=== PATIENT | male | born 1960 | race Asian ===

== ENCOUNTER 2018-11-10 15:01 | Inpatient (IN) | payer OTHER ==
[~2018-11-10] VITALS: Ht 172.7 cm; Wt 49.9 kg
--- NOTE | 2018-11-10 01:22 | NUR ---
2230 SPUTUM SAMPLE COLLECTED AND SENT TO LAB
[2018-11-10 15:10] VITALS: BP 133/115
--- NOTE | 2018-11-10 15:18 | NUR ---
Patient being evaluated by physician at bedside.
[2018-11-10] MEDS ORDERED: ALBUTEROL SULFATE/IPRATROPIU 3 ML SOL IH ONE (15:20)
--- NOTE | 2018-11-10 15:22 | NUR ---
58 Y/O M E/C/O SOB X1 DAY, NOTED COUGH AND WHEEZING. INCREASED RESPIRATORY EFFORT. PT DENIES N/V/D; AAOX4, PERRL. HR EVEN AND REGULAR, BL PERIPHERAL PULSES PRESENT; BS ACTIVE X4, NO TENDERNESS TO PALPATION, NO HEPATOSPLENOMEGALLY PALPATED, RESONANT TO PERCUSSION; PT DENIES ANY FEVER, CP, OR COUGH AT THIS TIME; PT STATES 0/10 PAIN AT THIS TIME; VSS; PATIENT POSITIONED FOR COMFORT; HOB ELEVATED; BEDRAILS UP X2; BED DOWN. PMH---COPD NKA
[2018-11-10] MEDS: KETOROLAC 15 MG/ML VIAL IVP ONE ×2 (15:39→15:43)
[2018-11-10] MEDS: NITROGLYCERIN 2% 1 GM PKT TP ONE ×2 (15:40→15:43)
--- NOTE | 2018-11-10 16:00 | NUR ---
PT IN BED WITH HANDS CROSSED, FEET UNCROSSED. NO S/S OF DISTRESS NOTED. PT MADE COMFORTABLE.
[2018-11-10 16:16] LABS: BASOPHILS % (AUTO) 0.2 % (0.0-2.0); EOSINOPHILS % (AUTO) 0.1 % (0.0-4.0); HEMATOCRIT 43.8 % (36-52); HEMOGLOBIN 13.9 g/dL (12.0-18.0); LYMPHOCYTES # (AUTO) 1.5 K/uL (2.0-11.5); LYMPHOCYTES % (AUTO) 5.8 % (20.5-51.1); MEAN CORPUSCULAR HEMOGLOBIN 30 pg (27-31); MEAN CORPUSCULAR HGB CONC 32 g/dL (33-37); MEAN CORPUSCULAR VOLUME 95.1 fL (80-94); MONOCYTES # (AUTO) 1.6 K/uL (0.8-1.0); MONOCYTES % (AUTO) 6.3 % (1.7-9.3); NEUTROPHILS # (AUTO) 22.1 K/uL (1.8-7.7); NEUTROPHILS % (AUTO) 87.6 % (42.2-75.2); PLATELET COUNT (AUTO) 282 K/uL (140-450); RED CELL DISTRIBUTION WIDTH 16.4 % (11.6-13.7); WHITE BLOOD COUNT (AUTO) 25.2 K/uL (4.8-10.8)
[2018-11-10 16:24] LABS: BILIRUBIN,URINE 1+ (NEGATIVE); BLOOD, URINE NEGATIVE (NEGATIVE); COLOR,URINE YELLOW (YELLOW); LEUKOCYTE ESTERASE ,URINE NEGATIVE (NEGATIVE); NITRITE, URINE NEGATIVE (NEGATIVE); PH,URINE 6.5 (5.0-9.0); UGLUCOSE NEGATIVE (NEGATIVE)
[2018-11-10 16:34] LABS: ALBUMIN 2.2 g/dL (3.4-5.0); ANION GAP 14.1 (8-16); CARBON DIOXIDE 25.3 mmol/L (21-32); CREATININE 0.9 mg/dL (0.7-1.3); POTASSIUM 3.4 mmol/L (3.5-5.1); TOTAL BILIRUBIN 1.2 mg/dL (0.0-1.0)
[2018-11-10] MEDS ORDERED: PIPERACILLIN/TAZOBACTAM 3.375 GM in DEXTROSE 5% 50 ML IV ONE (16:35)
[2018-11-10] MEDS ORDERED: NACL 0.9% 1,500 ML IV ONE (16:45)
[2018-11-10] MEDS ORDERED: PIPERACILLIN/TAZOBACTAM 3.375 GM VIAL IV ONE (16:57)
[2018-11-10] MEDS ORDERED: ALBUTEROL SULFATE/IPRATROPIU 3 ML SOL IH SCH (17:00)
[2018-11-10 17:04] LABS: LYMPHOCYTES % (MANUAL) 7 % (20-46); MONOCYTES % (MANUAL) 4 % (5-12)
--- NOTE | 2018-11-10 17:07 | NUR ---
VSS AT THIS TIME. NO S/S OF DISTRESS NOTED.
[2018-11-10 17:12] LABS: PROTHROMBIN TIME 10.4 secs (10.8-13.4)
[2018-11-10 18:06] LABS: APPEARANCE,URINE CLEAR (CLEAR)
--- NOTE | 2018-11-10 18:15 | NUR ---
vss at this time. no s/s of distress noted.
--- NOTE | 2018-11-10 18:50 | NUR ---
DUE TO DELAY IN RESPONSE FROM INSURANCE, WE WILL ADMIT HERE TO RESIDENTS
[2018-11-10] MEDS ORDERED: MORPHINE SULFATE 2 MG/ML SYR IVP PRN (19:05)
[2018-11-10] MEDS ORDERED: LORazepam 2 MG/ML VIAL IM/IVP PRN (19:05)
[2018-11-10] MEDS ORDERED: ZOLPIDEM 5 MG TAB PO PRN (19:05)
[2018-11-10] MEDS ORDERED: ACETAMINOPHEN 325 MG TAB PO PRN (19:05)
[2018-11-10] MEDS ORDERED: ONDANSETRON 4 MG/2 ML VIAL IM/IVP PRN (19:05)
[2018-11-10] MEDS ORDERED: DOCUSATE SODIUM 100 MG GELCAP PO PRN (19:05)
[2018-11-10] MEDS ORDERED: HYDROcodone/APAP 5/325 MG 1 TAB TAB PO PRN (19:05)
--- NOTE | 2018-11-10 19:08 | NUR ---
REPORT GIVEN TO JUANCHO ROBERTSON FOR TRANSFER OF CARE AT THIS TIME.
--- NOTE | 2018-11-10 19:20 | NUR ---
RECEIVED REPORT FROM AM NURSE. PT LAYING IN BED, RR EVEN AND UNLABORED, REPORTS IMPROVEMENT IN SOB. ALL NEEDS MET.
--- NOTE | 2018-11-10 19:27 | NUR ---
DR. JENNINGS AT BEDSIDE
--- NOTE | 2018-11-10 19:35 | NUR ---
Patient will be admitted to care of DR. VELÁSQUEZ. Admited to TELE. Will go to room 110B. Belongings list completed. Report to MARCELO SHUKLA.
[2018-11-10 19:40] VITALS: BP 139/98
[2018-11-10] MEDS ORDERED: VANCOMYCIN PER PHARMACY MC PRN (19:40)
--- NOTE | 2018-11-10 19:40 | NUR ---
RECEIVED REPORT FROM DAYSHIFT NURSE AT BEDSIDE FOR CONTINUITY OF CARE. PT AAOX4. PT IV NOTED LFA 22G. NO SOB NO S/S OF DISTRESS ON NC 4L O2. BED LOWERED CALL LIGHT WITHIN REACH. PT ORIENTED TO ROOM.
[2018-11-10] MEDS ORDERED: DEXTROSE 50% 50 ML SYR IVP PRN (19:45)
[2018-11-10] MEDS ORDERED: ALBUTEROL SULFATE/IPRATROPIU 3 ML SOL IH PRN (19:45)
[2018-11-10 20:14] LABS: MAGNESIUM 1.8 mg/dL (1.8-2.4)
[2018-11-10 20:15] LABS: AMYLASE 26 U/L (25-115); LIPASE 29 U/L (73-393); PHOSPHORUS 4.3 mg/dL (2.5-4.9); THYROID STIMULATING HORMONE 0.95 uIU/mL (0.34-3.74)
[2018-11-10 20:20] LABS: BARBITURATE, URINE NEG. ng/ml (NEG <=200); BENZODIAZEPINE, URINE NEG. ng/mL (NEG <=200); CANNABINOID, URINE NEG. ng/mL (NEG <=50); COCAINE, URINE NEG. ng/mL (NEG <=300); OPIATE, URINE POS. ng/mL (NEG <=2000); PHENCYCLIDINE SCREEN,URINE NEG. ng/mL (NEG <=25)
[2018-11-10] MEDS ORDERED: VANCOMYCIN 1GM/DEXT 5% PREMIX 200 ML IV SCH (21:00)
[2018-11-10] MEDS ORDERED: CYCLOBENZAPRINE 10 MG TAB PO SCH (21:10)
[2018-11-10] MEDS ORDERED: AMLO1CAP91 PO (21:11)
[2018-11-10] MEDS ORDERED: METF500T PO (21:11)
[2018-11-10] MEDS ORDERED: ZYL300 PO (21:11)
[2018-11-10] MEDS ORDERED: GABA400C PO (21:11)
[2018-11-10] MEDS ORDERED: ESOM20EC PO (21:11)
[2018-11-10] MEDS ORDERED: CYCL10TA36 PO (21:11)
[2018-11-10] MEDS ORDERED: CARV12.5 PO (21:11)
[2018-11-10] MEDS ORDERED: VANCOMYCIN 1,000 MG VIAL ONE (21:58)
[2018-11-10] MEDS ORDERED: GABAPENTIN 100 MG CAP ONE (22:17)
[2018-11-10] MEDS: NACL 0.9% 1,000 ML IV SCH (22:19)
[2018-11-10] MEDS: BLOOD GLUCOSE MONITORING 1 DEV DEV FS SCH (22:20)
[2018-11-10] MEDS: GABAPENTIN 100 MG CAP PO SCH (22:21)
[2018-11-11] VITALS (8 sets, daily range): BP systolic 90–136; BP diastolic 64–92
[2018-11-11] MEDS ORDERED: PIPERACILLIN/TAZOBACTAM 3.375 GM VIAL IV ONE ×2 (01:01→06:08)
[2018-11-11] MEDS: PIPER/TAZO 3.375GM/D5W PREMIX 50 ML IV SCH ×5 (01:05→23:55)
[2018-11-11] MEDS: NACL 0.9% 1,000 ML IV SCH ×3 (01:06→22:26)
[2018-11-11] MEDS ORDERED: PNEUMOCOCCAL VACCINE 23 MCG/0.5 ML VIAL IMVAC SCH (02:00)
[2018-11-11] MEDS ORDERED: INFLUENZA VIRUS VACCINE QUAD 0.5 ML SYR IMVAC PRN (02:00)
--- NOTE | 2018-11-11 06:00 | NUR ---
UNABLE TO GO TO CT. IV NOT PATENT AND NOT FLUSHING WELL. MD NIETO AWARE. PT IS NOW ON BIPAP. O2 SAT 99%
[2018-11-11 06:18] LABS: T4 (THYROXINE) 5.7 ug/dL (4.5-12.0)
--- NOTE | 2018-11-11 06:30 | NUR ---
TRANSFER TO RADIOLOGY FOR CT SCAN WITH CONTRAST CANCELLED DUE TO IV SITE NOT APPROPRIATE AT THIS TIME. DR JUAN MANUEL LORENZ AT BEDSIDE AWARE
[2018-11-11] MEDS: BLOOD GLUCOSE MONITORING 1 DEV DEV FS SCH ×4 (06:36→21:00)
[2018-11-11 06:51] LABS: CARBON DIOXIDE 28.1 mmol/L (21-32); CREATININE 0.7 mg/dL (0.7-1.3); POTASSIUM 3.1 mmol/L (3.5-5.1)
[2018-11-11 06:52] LABS: CHOL/HDL RATIO 4.1 (1-4.5); MAGNESIUM 1.8 mg/dL (1.8-2.4); PHOSPHORUS 3.1 mg/dL (2.5-4.9)
[2018-11-11 06:54] LABS: BASOPHILS % (AUTO) 0.1 % (0.0-2.0); EOSINOPHILS % (AUTO) 0.2 % (0.0-4.0); HEMATOCRIT 43.1 % (36-52); HEMOGLOBIN 13.7 g/dL (12.0-18.0); LYMPHOCYTES # (AUTO) 1.7 K/uL (2.0-11.5); LYMPHOCYTES % (AUTO) 8.4 % (20.5-51.1); MEAN CORPUSCULAR HEMOGLOBIN 30 pg (27-31); MEAN CORPUSCULAR HGB CONC 32 g/dL (33-37); MEAN CORPUSCULAR VOLUME 95.2 fL (80-94); MONOCYTES # (AUTO) 1.9 K/uL (0.8-1.0); MONOCYTES % (AUTO) 9.2 % (1.7-9.3); NEUTROPHILS % (AUTO) 82.1 % (42.2-75.2); PLATELET COUNT (AUTO) 291 K/uL (140-450); RED BLOOD CELL COUNT(AUTO) 4.53 MIL/uL (4.20-6.10); RED CELL DISTRIBUTION WIDTH 16.1 % (11.6-13.7); WHITE BLOOD COUNT (AUTO) 20.7 K/uL (4.8-10.8)
--- NOTE | 2018-11-11 06:57 | NUR ---
PT ON VENTURI MASK 4L.
[2018-11-11] MEDS: ALBUTEROL SULFATE/IPRATROPIU 3 ML SOL IH SCH ×3 (07:24→19:05)
--- NOTE | 2018-11-11 07:24 | NUR ---
ENDORSED REPORT TO DAYSHIFT NURSE AT BEDSIDE FOR CONTINUITY OF CA
[2018-11-11] MEDS: LORazepam 2 MG/ML VIAL IVP SCH ×2 (07:30→08:42)
--- NOTE | 2018-11-11 07:30 | NUR ---
PATIENT WAS AWAKE, ALERT. RESPIRATION EVEN, UNLABOR ON BIPAP. SKIN DRY AND WARM. IV PATENT AND INTACT. DENIED PAIN, SOB AT THIS TIME. PLAN OF CARE WAS DISCUSSED WITH PATIENT. BED AT LOW POSITION, SIDE RAILS UP. CALL LIGHT WITHIN REACH
--- NOTE | 2018-11-11 08:04 | NUR ---
REMOVED FROM BIPAP TO MASK PLACED ON AN OXYMIZER AT 5 LPM FOR BREAKFAST MEAL DIOMEDES/RN NOTIFIED
--- NOTE | 2018-11-11 08:11 | NUR ---
PATIENT HAS BEEN SCREENED AND CATEGORIZED HIGH NUTRITION RISK. PATIENT WILL BE SEEN WITHIN 1-2 DAYS OF ADMISSION. 11/11/18-11/12/[address]
[2018-11-11] MEDS: GABAPENTIN 100 MG CAP PO SCH ×3 (08:41→17:13)
[2018-11-11] MEDS: CARVEDILOL 12.5 MG TAB PO SCH ×2 (08:42→21:30)
[2018-11-11] MEDS: VANCOMYCIN 750 MG in DEXTROSE 5% 250 ML IV SCH ×2 (08:42→21:30)
--- NOTE | 2018-11-11 09:15 | NUR ---
PATIENT WAS AWAKE, ALERT. RESPIRATION EVEN, UNLABOR ON OXIMIZER 5L. NO DISTRESS NOTED AT THIS TIME. MEDS WERE GIVEN PER ORDER. PATIENT HAD QUESTIONS REGARDING CENTRAL LINE PLACEMENT. DR. VELAZQUEZ WAS MADE AWARE.
--- NOTE | 2018-11-11 09:15 | NUR ---
REVIEWED PATIENT STATUS WITH DR MELINDA JAEGER MD STATES TO KEEP PATIENT OF BIPAP AND OXYGEN SATURATION GREATER THAN 90% Addendum: 11/11/18 at 2758 by Sanjay Montesinos RT DIOMEDES/MARCELO NOTIFIED AT THIS TIME
--- NOTE | 2018-11-11 09:22 | NUR ---
SPOKE WITH CHRISTY FROM [facility]. SHE ASKED IF PATIENT IS STABLE FOR TRANSFER TO CONTRACTED HOSPITAL. I SPOKE WITH DR. ESTEVEZ AND HE SAID SHE WAS. I GAVE HER THE PHONE NUMBER TO DR. VELÁSQUEZ. CHRISTY PHONE, .
--- NOTE | 2018-11-11 10:39 | NUR ---
CONSENT FOR CT CHEST WITH CONTRAST WAS OBTAINED AT BEDSIDE, SIGNED BY PATIENT.
--- NOTE | 2018-11-11 10:57 | NUR ---
DR. STANFORD WAS MADE AWARE OF POTASSIUM 3.1, AWAITING FOR ORDERS
--- NOTE | 2018-11-11 11:24 | NUR ---
PATIENT COMPLAINED OF SOB, DESAT ON 5L OXYMIZER TO 87%. PATIENT WAS PLACED ON 7L, SPO2 90%. PATIENT STATED HE FEELS BETTER NOW
--- NOTE | 2018-11-11 11:45 | NUR ---
PATIENT WAS ASSISTED TO GO TO BATHROOM, AMBULATORY WITH STEADY GAIT.
[2018-11-11] MEDS ORDERED: methylPREDNISolone SS 125 MG/2 ML VIAL IVP SCH (12:00)
--- NOTE | 2018-11-11 12:29 | NUR ---
STOOL SAMPLE WAS OBTAINED PER ORDER
--- NOTE | 2018-11-11 12:30 | NUR ---
PATIENT WAS AWAKE, ALERT, SITTING ON CHAIR. RESPIRATION EVEN, UNLABOR ON 7L OXYMIZER. DENIED PAIN, SOB AT THIS TIME. CALL LIGHT WITHIN REACH
[2018-11-11] MEDS: INSULIN LISPRO SLIDING SCALE 100 UNITS/ML VIAL SUBQ PRN ×3 (12:36→21:32)
--- NOTE | 2018-11-11 13:23 | NUR ---
PATIENT PRESENTING WITH PERSISTENT COUGHING SCORER SINGLE TO CONSULT WITH ATTENDING RESIDENT Addendum: 11/11/18 at 1340 by Sanjay Montesinos RT SPOKE WITH DR MICHAEL LUCIA (COVERING FOR DR JUAN MANUEL LORENZ) WILL EITHER CONSULT WITH DR KRISTA JAEGER OR REVIEW AND PLACE ORDER FOR PERSISTENT COUGHING
--- NOTE | 2018-11-11 13:34 | NUR ---
11/11/18 RD INITIAL ASSESSMENT COMPLETED PLEASE REFER TO NUTRITION ASSESSMENT UNDER CARE ACTIVITY FOR ESTIMATED NUTRITIONAL NEEDS. 1. CONTINUE 60 GM CCHO DIET TOLERATED 2. RECOMMEND ENSURE MAX PROTEIN TID 3. RECOMMEND SWALLOW EVALUATION FOR SWALLOWING DIFFICULTY 4. RD TO FOLLOW-UP 2-3 DAYS, HIGH RISK TALITA BYNUM, STER[place]
[2018-11-11] MEDS ORDERED: POTASSIUM CHLORIDE 10 MEQ TABER PO SCH (14:00)
--- NOTE | 2018-11-11 14:15 | NUR ---
PATIENT WAS SLEEPING COMFORTABLY. RESPIRATION EVEN, UNLABOR ON 7L OXYMIZER. NO DISTRESS NOTED AT THIS TIME
[2018-11-11] MEDS: guaiFENesin/CODEINE 100/10MG 5 ML UDC PO PRN (14:27)
--- NOTE | 2018-11-11 15:15 | NUR ---
RECEIVED A CALL FROM CHRISTY AT [facility]. SHE SAID THE PATIENT HAS BEEN ACCEPTED AT [facility]. SHE DID WANT OUR PHYSICIAN TO CALL DR. RANJITH CRESPO AT [phone]. I RECEIVED A CALL BACK FROM CHRISTY FROM [facility] AND SHE SAID THEY ARE NOT TRANSFERING THE PATIENT. SHE GAVE AUTH FOR 11/10/ // 11/12/ AND 11/13.
--- NOTE | 2018-11-11 16:15 | NUR ---
PATIENT WAS AWAKE, ALERT. RESPIRATION EVEN, UNLABOR ON 7L OXYMIZER. DENIED PAIN, SOB AT THIS TIME. NO DISTRESS NOTED. CENTRAL LINE CONSENT WAS OBTAINED AT BEDSIDE, SIGNED BY PATIENT.
--- NOTE | 2018-11-11 18:37 | NUR ---
PATIENT IS AWAKE, ALERT. RESPIRATION EVEN, UNLABOR ON 7L OXYMIZER. CENTRAL LINE IS BEING PERFORMED AT BEDSIDE. NO DISTRESS NOTED AT THIS TIME
--- NOTE | 2018-11-11 18:50 | NUR ---
PATIENT WAS PLACED ON 5L OXYMIZER, SPO2 98%
[2018-11-11] MEDS ORDERED: NICOTINE TRANSD SYS 14 MG/24 HR PATCH TD SCH (18:55)
--- NOTE | 2018-11-11 19:02 | NUR ---
CENTRAL CATH WAS PLACED. PATIENT IS AWAKE, VS IS STABLE. NO DISTRESS NOTED
--- NOTE | 2018-11-11 19:23 | NUR ---
ENDORSEMENT GIVEN TO DOCUMENT REVIEWER NURSE. PATIENT IS STABLE AT THIS TIME
--- NOTE | 2018-11-11 19:24 | NUR ---
RECEIVED REPORT FROM SHIVANI AT BEDSIDE FOR CONTINUITY OF CARE. PT AAOX4. PT IV RFA 22G NS 124. RIJ CENTRAL LINE TRIPLE LUMEN, LAC 20G SALINE LOCK, LORENZO 20G SALINE LOCK. NO SOB NO S/S OF DISTRESS ON 5L OXYMIZER. BED LOWERED CALL LIGHT WITHIN REACH WILL CONTINUE TO MONITOR.
--- NOTE | 2018-11-11 19:30 | NUR ---
PT OBSERVED EATING TRAY. PT WILL NOW HAVE CT W/CONTRAST STUDY AT MIDNIGHT. PT AWARE TO BE NPO UNTIL AFTER PROCEDURE.
--- NOTE | 2018-11-11 22:47 | NUR ---
DC BOTH LAC 20G AND LORENZO 20G D/T PT HAS CENTRAL LINE IN PLACE. PT RESTING IN BED.
[2018-11-12] VITALS: BP 100/59
[2018-11-12 03:57] VITALS: BP 101/72
[2018-11-12] MEDS: NACL 0.9% 1,000 ML IV SCH ×2 (04:00→13:28)
[2018-11-12] MEDS: methylPREDNISolone SS 125 MG/2 ML VIAL IVP SCH ×3 (04:04→20:32)
[2018-11-12] MEDS: PIPER/TAZO 3.375GM/D5W PREMIX 50 ML IV SCH ×4 (06:09→23:34)
[2018-11-12] MEDS: INSULIN LISPRO SLIDING SCALE 100 UNITS/ML VIAL SUBQ PRN ×4 (06:13→20:36)
[2018-11-12 07:04] LABS: BASOPHILS % (AUTO) 0.1 % (0.0-2.0); HEMATOCRIT 45.4 % (36-52); HEMOGLOBIN 14.3 g/dL (12.0-18.0); LYMPHOCYTES # (AUTO) 0.7 K/uL (2.0-11.5); LYMPHOCYTES % (AUTO) 5.4 % (20.5-51.1); MEAN CORPUSCULAR HEMOGLOBIN 31 pg (27-31); MEAN CORPUSCULAR HGB CONC 31 g/dL (33-37); MEAN CORPUSCULAR VOLUME 97.3 fL (80-94); MONOCYTES # (AUTO) 0.4 K/uL (0.8-1.0); NEUTROPHILS # (AUTO) 11.8 K/uL (1.8-7.7); NEUTROPHILS % (AUTO) 91.5 % (42.2-75.2); PLATELET COUNT (AUTO) 207 K/uL (140-450); RED BLOOD CELL COUNT(AUTO) 4.66 MIL/uL (4.20-6.10); WHITE BLOOD COUNT (AUTO) 12.9 K/uL (4.8-10.8)
[2018-11-12] MEDS: ALBUTEROL SULFATE/IPRATROPIU 3 ML SOL IH SCH ×3 (07:10→19:44)
--- NOTE | 2018-11-12 07:10 | NUR ---
SATURATION 97% ON SUPPLEMENTAL OXYGEN AT 5 LPM VIA OXYMIZER POST HHN THERAPY TITRATED FIO2 TO 3 LPM DIOMEDES/RN NOTIFIED
--- NOTE | 2018-11-12 07:13 | NUR ---
ENDORSED REPORT TO DAYSHIFT NURSE AT BEDSIDE FOR CONTINUITY OF CARE.
[2018-11-12] MEDS: BLOOD GLUCOSE MONITORING 1 DEV DEV FS SCH ×4 (07:30→20:32)
--- NOTE | 2018-11-12 07:30 | NUR ---
PATIENT WAS AWAKE, ALERT. RESPIRATION EVEN, UNLABOR ON 3L OXYMIZER. SKIN DRY AND WARM. IV PATENT AND INTACT. CENTRAL LINE DRESSING DRY AND CLEAN. DENIED PAIN, SOB AT THIS TIME. PLAN OF CARE WAS DISCUSSED WITH PATIENT. BED AT LOW POSITION, SIDE RAILS UP. CALL LIGHT WITHIN REACH
[2018-11-12 07:54] LABS: MAGNESIUM 1.9 mg/dL (1.8-2.4); PHOSPHORUS 3.3 mg/dL (2.5-4.9)
[2018-11-12 08:00] VITALS: BP 107/72
[2018-11-12 08:02] LABS: ANION GAP 8.9 (8-16); CARBON DIOXIDE 23.1 mmol/L (21-32); CREATININE 0.7 mg/dL (0.7-1.3)
[2018-11-12] MEDS: NICOTINE TRANSD SYS 14 MG/24 HR PATCH TD SCH (08:39)
[2018-11-12] MEDS: guaiFENesin/CODEINE 100/10MG 5 ML UDC PO PRN ×2 (08:40→17:28)
[2018-11-12] MEDS: CARVEDILOL 12.5 MG TAB PO SCH ×2 (08:40→20:29)
[2018-11-12] MEDS: GABAPENTIN 100 MG CAP PO SCH ×3 (08:40→17:28)
[2018-11-12] MEDS ORDERED: guaiFENesin 600 MG TABER PO SCH ×2 (10:00→21:00)
--- NOTE | 2018-11-12 10:00 | NUR ---
IVF WAS CHANGED TO 80ML/HR PER ORDER
--- NOTE | 2018-11-12 10:26 | NUR ---
PATIENT WAS AWAKE, ALERT. RESPIRATION EVEN, UNLABOR ON 3L NC. NO DISTRESS NOTED AT THIS TIME
[2018-11-12] MEDS: VANCOMYCIN 1GM/DEXT 5% PREMIX 200 ML IV SCH ×2 (11:05→23:34)
[2018-11-12 12:00] VITALS: BP 106/76
--- NOTE | 2018-11-12 12:00 | NUR ---
PATIENT WAS AWAKE, ALERT. RESPIRATION EVEN, UNLABOR ON 3L OXYMIZER. DENIED PAIN, SOB AT THIS TIME. NO DISTRESS NOTED. CALL LIGHT WITHIN REACH.
[2018-11-12] MEDS: MUPIROCIN CA NASAL 2% 1GM TUBE NS SCH (13:47)
[2018-11-12] MEDS: CHLORHEXADINE GLUC 2% CLOTH TP SCH (13:47)
[2018-11-12] MEDS: BENZONATATE 100 MG CAPLF PO PRN (13:47)
--- NOTE | 2018-11-12 13:57 | NUR ---
PATIENT WAS COUGHING VIGOROUSLY, MODERATE SPUTUM. COUGH MEDICINE WAS GIVEN PER ORDER. PATIENT WAS PLACED ON 5L OXYMIZER. PATIENT COMPLAINED OF DRY NOSE ASSOCIATE WITH OXYMIZER. RT WAS NOTIFIED.
--- NOTE | 2018-11-12 14:08 | NUR ---
PATIENT C/O OF NASAL DRYNESS WITH SUPPLEMENTAL OXUGEN USE POST HHN THERAY ADDED HUMIDIFIER
--- NOTE | 2018-11-12 15:05 | NUR ---
CALLED [facility] AFTER HOUR [phone] AND SPOKE TO FRANCISCO, HE SAID HE WILL TALK TO THE FEED MANAGER AND THEY WILL CALL US BACK.
[2018-11-12 16:00] VITALS: BP 111/75
--- NOTE | 2018-11-12 16:15 | NUR ---
PATIENT WAS AWAKE, WATCHING PHONE COMFORTABLY. RESPIRATION EVEN, UNLABOR ON 5L OXYMIZER. DENIED PAIN, SOB AT THIS TIME. CALL LIGHT WITHIN TEACH.
--- NOTE | 2018-11-12 16:30 | NUR ---
Public Health Teacher Notes: I call [facility] at I spoke to Chloe about MD order and needed Authorization for Patient to be transfer to a contracted facility. Chloe (Doctor Of Naprapathy stated that she will have the correctional case records supervisor operations and maintenance technician that handles the Group call me back to discuss needed Authorization; she stated that she will call back with in 30 mins or so and if she is not calling within time frame to call her back. I thanked her for her assistance and ended that call.
--- NOTE | 2018-11-12 17:10 | NUR ---
Shoe Laster Notes: Joy form [facility] Call me back in regards to previous call to obtain patient transfer to contract facility. Per Joy she will not give Authorization to transfer Patient. She stated that previous case Manger Nona has already authorized for Patient to Stay in [facility] from 11/10/18 - 11/13/18 and she doesn't feel comfortable making changes,. without other clinical information or a review. Joy asked to speak to RN and I provided her information. She thanked me and also provided her work cell number for RN to call her and provided her with more Patient information. I thanked her for her information took her number and ended the call. Charge Nurse Richard was made aware by these short story writer, provided her with Information and contact number to contact transplant case manager Joy from [facility].
--- NOTE | 2018-11-12 17:49 | NUR ---
PATIENT WAS AWAKE, ALERT, EATING DINNER COMFORTABLY. RESPIRATION EVEN, UNLABOR ON 5L OXYMIZER. IV PATENT AND INTACT. CENTRAL CATH 3 LUMENS WERE FLUSHING WELL. NO DISTRESS NOTED AT THIS TIME. MEDS WERE GIVEN PER ORDER
--- NOTE | 2018-11-12 19:22 | NUR ---
ENDORSEMENT GIVEN TO SALE PROFESSIONAL DIGITAL MARKETING NURSE. PATIENT IS STABLE AT THIS TIME
--- NOTE | 2018-11-12 19:23 | NUR ---
RECEIVED REPORT FROM MARCELO GAMBOA FOR CONTINUITY OF CARE. PT A/OX4 ON 5L O2 VIA OXYMIZER. PT IS ABLE TO MAKE NEEDS KNOWN, ABLE TO FOLLOW COMMANDS. PT AMBULATES WITH STEADY GAIT AND SKIN IS INTACT. PT HAS TRIPLE LUMEN CATH TO RIGHT IJ. VITAL SIGNS WITHIN NORMAL LIMITS. PT STABLE, DENIES HAVING ANY PAIN, NO SIGNS OF DISTRESS NOTED AT THIS TIME. PT POSITIONED FOR COMFORT. BED IN LOWEST POSITION, BED ALARM ON. WILL CONTINUE TO MONITOR. Addendum: 11/12/18 at 2153 by Kim Peraza RN DISREGARD, WRONG NOTE.
--- NOTE | 2018-11-12 19:24 | NUR ---
RECEIVED REPORT FROM MARCELO HERCULES FOR CONTINUITY OF CARE. PT A/OX4 ON 5L O2 VIA OXYMIZER. PT IS ABLE TO MAKE NEEDS KNOWN, ABLE TO FOLLOW COMMANDS. PT AMBULATES WITH STEADY GAIT AND SKIN IS INTACT. PT HAS TRIPLE LUMEN CATH TO RIGHT IJ. VITAL SIGNS WITHIN NORMAL LIMITS. PT STABLE, DENIES HAVING ANY PAIN, NO SIGNS OF DISTRESS NOTED AT THIS TIME. PT POSITIONED FOR COMFORT. BED IN LOWEST POSITION, BED ALARM ON. WILL CONTINUE TO MONITOR.
[2018-11-12 20:00] VITALS: BP 112/76
--- NOTE | 2018-11-12 20:37 | NUR ---
ADMINISTERED SCHEDULED MEDICATIONS, PT TOLERATED WELL.
--- NOTE | 2018-11-12 22:20 | NUR ---
PT WANTING TO EAT AT THIS MOMENT. EXPLAINED BLOOD SUGAR IS HIGH BUT PT STATES HE IS VERY HUNGRY. GAVE HIM HALF WHEAT SANDWICH. PT IS NOW OK.
[2018-11-13] VITALS: BP 111/73
--- NOTE | 2018-11-13 | NUR ---
VITAL SIGNS WITHIN NORMAL LIMITS. PT STABLE, DENIES HAVING ANY PAIN, NO SIGNS OF DISTRESS NOTED AT THIS TIME. PT POSITIONED FOR COMFORT. BED IN LOWEST POSITION, BED ALARM ON. WILL CONTINUE TO MONITOR.
[2018-11-13] MEDS: NACL 0.9% 1,000 ML IV SCH ×2 (00:05→13:21)
--- NOTE | 2018-11-13 02:38 | NUR ---
IV ALARM WENT ON. CHECKED IV AND RESUMED IVF, DISPOSED OF URINE IN URINAL. PT STABLE, DENIES HAVING ANY PAIN, NO SIGNS OF DISTRESS NOTED AT THIS TIME. BED IN LOWEST POSITION, BED ALARM ON. WILL CONTINUE TO MONITOR.
[2018-11-13 04:00] VITALS: BP 122/85
[2018-11-13] MEDS: methylPREDNISolone SS 40 MG/ML VIAL IVP SCH ×3 (04:11→20:14)
[2018-11-13] MEDS: PIPER/TAZO 3.375GM/D5W PREMIX 50 ML IV SCH ×3 (05:47→17:29)
[2018-11-13] MEDS: BLOOD GLUCOSE MONITORING 1 DEV DEV FS SCH ×4 (05:49→20:20)
[2018-11-13] MEDS: INSULIN LISPRO SLIDING SCALE 100 UNITS/ML VIAL SUBQ PRN ×4 (05:50→20:19)
--- NOTE | 2018-11-13 05:53 | NUR ---
ADMINISTERED SCHEDULED MEDICATIONS, PT TOLERATED WELL.
[2018-11-13] MEDS: ALBUTEROL SULFATE/IPRATROPIU 3 ML SOL IH SCH ×3 (07:31→19:58)
--- NOTE | 2018-11-13 07:33 | NUR ---
ENDORSED PT TO DAY SHIFT MARCELO MCCRACKEN FOR CONTINUITY OF CARE. PT IN STABLE CONDITION.
--- NOTE | 2018-11-13 07:34 | NUR ---
RECEIVED REPORT FROM STORM SASH MAKER NURSE. PATIENT LYING DOWN IN BED COMFORTABLY, ON HIS PHONE. NO DISTRESS NOTED. DENIES ANY PAIN. RESPIRATIONS EVEN, UNLABORED, ON OXIMIZER 5L/MIN. LUNGS CTA ON ALL LOBES. AAOX3, CALM, COOPERATIVE, SKIN COLOR APPROPRIATE TO ETHNICITY, WARM TO TOUCH. SKIN IS INTACT. RIGHT TRIPLE LUMEN IJ NOTED, INTACT, PATENT, AND INFUSING IVF PER MD ORDERS. RIGHT FOREARM IV SITE NOTED, INTACT, PATENT, AND ON SALINE LOCK. ABDOMEN SOFT, NON-DISTENDED. SAFETY MEASURES IN PLACE, CALL LIGHT WITHIN REACH. WILL CONTINUE OT MONITOR.
[2018-11-13 07:48] LABS: HEMATOCRIT 36.4 % (36-52); HEMOGLOBIN 11.7 g/dL (12.0-18.0); LYMPHOCYTES # (AUTO) 0.6 K/uL (2.0-11.5); LYMPHOCYTES % (AUTO) 4.3 % (20.5-51.1); MEAN CORPUSCULAR HEMOGLOBIN 31 pg (27-31); MEAN CORPUSCULAR HGB CONC 32 g/dL (33-37); MEAN CORPUSCULAR VOLUME 95.3 fL (80-94); MONOCYTES # (AUTO) 0.4 K/uL (0.8-1.0); MONOCYTES % (AUTO) 2.8 % (1.7-9.3); NEUTROPHILS # (AUTO) 12.2 K/uL (1.8-7.7); NEUTROPHILS % (AUTO) 92.9 % (42.2-75.2); PLATELET COUNT (AUTO) 262 K/uL (140-450); RED BLOOD CELL COUNT(AUTO) 3.82 MIL/uL (4.20-6.10); RED CELL DISTRIBUTION WIDTH 15.6 % (11.6-13.7); WHITE BLOOD COUNT (AUTO) 13.1 K/uL (4.8-10.8)
[2018-11-13 08:00] VITALS: BP 124/87
[2018-11-13 08:16] LABS: ANION GAP 5.5 (8-16); CARBON DIOXIDE 27.9 mmol/L (21-32); CREATININE 0.7 mg/dL (0.7-1.3); PHOSPHORUS 3.3 mg/dL (2.5-4.9); POTASSIUM 3.4 mmol/L (3.5-5.1)
[2018-11-13] MEDS: CARVEDILOL 12.5 MG TAB PO SCH ×2 (09:42→20:14)
[2018-11-13] MEDS: GABAPENTIN 100 MG CAP PO SCH ×3 (09:43→17:29)
[2018-11-13] MEDS: NICOTINE TRANSD SYS 14 MG/24 HR PATCH TD SCH (09:43)
--- NOTE | 2018-11-13 09:50 | NUR ---
PATIENT SITTING IN BED WATCHING VIDEOS ON HIS PHONE. NO DISTRESS NOTED. DENIES ANY PAIN. SCHEDULED MEDICATIONS DUE GIVEN. WILL CONTINUE TO MONITOR.
[2018-11-13] MEDS ORDERED: POTASSIUM CHLORIDE 10 MEQ TABER PO SCH (10:30)
[2018-11-13] MEDS ORDERED: ALLOPURINOL 300 MG TAB PO SCH (10:30)
--- NOTE | 2018-11-13 10:57 | NUR ---
PATIENT SITTING IN BED ON HIS PHONE. NO DISTRESS NOTED. DENIES ANY PAIN. SCHEDULED MEDICATIONS DUE GIVEN. WILL CONTINUE TO MONITOR.
[2018-11-13 12:00] VITALS: BP 120/83
--- NOTE | 2018-11-13 13:27 | NUR ---
PATIENT SITTING IN BED ON HIS PHONE. NO DISTRESS NOTED. DENIES ANY PAIN. CONDITION UNCHANGED. WILL CONTINUE TO MONITOR.
[2018-11-13] MEDS: VANCOMYCIN 1GM/DEXT 5% PREMIX 200 ML IV SCH ×2 (14:42→22:00)
[2018-11-13] MEDS: CHLORHEXADINE GLUC 2% CLOTH TP SCH (14:42)
[2018-11-13] MEDS: MUPIROCIN CA NASAL 2% 1GM TUBE NS SCH (14:43)
--- NOTE | 2018-11-13 14:47 | NUR ---
PATIENT SITTING IN BED WATCHING TV. NO DISTRESS NOTED. DENIES ANY PAIN. SCHEDULED MEDICATIONS DUE GIVEN. WILL CONTINUE TO MONITOR.
[2018-11-13 16:00] VITALS: BP 131/92
--- NOTE | 2018-11-13 16:30 | NUR ---
PATIENT SITTING IN BED TALKING WITH FAMILY MEMBER AT BEDSIDE. NO DISTRESS NOTED. DENIES ANY PAIN. WILL CONTINUE TO MONITOR.
[2018-11-13] MEDS: guaiFENesin/CODEINE 100/10MG 5 ML UDC PO PRN (17:29)
--- NOTE | 2018-11-13 17:33 | NUR ---
PATIENT SITTING IN BED WITH INTERMITTENT COUGHING. SCHEDULED MEDICATIONS DUE GIVEN. COUGH SYRUP GIVEN PER MD ORDERS. SAFETY MEASURES IN PLACE, CALL LIGHT WITHIN REACH. WILL CONTINUE TO MONITOR.
--- NOTE | 2018-11-13 19:30 | NUR ---
RECEIVED REPORT FROM KAYKAY AT BEDSIDE FOR CONTINUITY OF CARE. PT AAOX4. PT IV NOTED RIJ TRIPLE LUMEN SALINE LOCK & RFA 22G NS AT 80ML/HR. NO SOB NO S/S OF DISTRESS ON OXIMYZER 5L. BED LOWERED CALL LIGHT WITHIN REACH. WILL CONTINUE TO MONITOR.
--- NOTE | 2018-11-13 19:38 | NUR ---
GAVE REPORT TO TEMPER MILL OPERATOR NURSE FOR CONTINUITY OF CARE. PATIENT IN STABLE CONDITION.
[2018-11-13 19:53] VITALS: BP 118/87
--- NOTE | 2018-11-13 20:59 | NUR ---
SPUTUM COLLECTED AND SEND TO THE LAB AT 2054
[2018-11-14] VITALS: BP 117/83
[2018-11-14] MEDS: guaiFENesin/CODEINE 100/10MG 5 ML UDC PO PRN ×2 (00:47→12:30)
[2018-11-14] MEDS: PIPER/TAZO 3.375GM/D5W PREMIX 50 ML IV SCH ×4 (00:47→17:41)
[2018-11-14] MEDS: NACL 0.9% 1,000 ML IV SCH ×2 (01:44→14:14)
[2018-11-14 04:00] VITALS: BP 132/93
[2018-11-14] MEDS: BENZONATATE 100 MG CAPLF PO PRN (04:28)
[2018-11-14] MEDS: INSULIN LISPRO SLIDING SCALE 100 UNITS/ML VIAL SUBQ PRN ×2 (05:48→12:30)
[2018-11-14] MEDS: VANCOMYCIN 1GM/DEXT 5% PREMIX 200 ML IV SCH (06:24)
[2018-11-14] MEDS: BLOOD GLUCOSE MONITORING 1 DEV DEV FS SCH ×3 (06:24→16:39)
[2018-11-14 06:30] LABS: LYMPHOCYTES # (AUTO) 0.4 K/uL (2.0-11.5); LYMPHOCYTES % (AUTO) 3.5 % (20.5-51.1); MEAN CORPUSCULAR HEMOGLOBIN 31 pg (27-31); MEAN CORPUSCULAR HGB CONC 33 g/dL (33-37); MEAN CORPUSCULAR VOLUME 95.1 fL (80-94); MONOCYTES # (AUTO) 0.7 K/uL (0.8-1.0); MONOCYTES % (AUTO) 5.6 % (1.7-9.3); NEUTROPHILS # (AUTO) 10.8 K/uL (1.8-7.7); NEUTROPHILS % (AUTO) 90.9 % (42.2-75.2); PLATELET COUNT (AUTO) 260 K/uL (140-450); RED BLOOD CELL COUNT(AUTO) 3.57 MIL/uL (4.20-6.10); RED CELL DISTRIBUTION WIDTH 15.4 % (11.6-13.7); WHITE BLOOD COUNT (AUTO) 11.9 K/uL (4.8-10.8)
--- NOTE | 2018-11-14 06:58 | NUR ---
CALLED TO GIVE REPORT TO [facility]. PER FLOOR REVIEW NURSE AT [facility], THE TRAILER TRUCK DRIVER TAKING OVER WILL CALLBACK FOR REPORT.
[2018-11-14] MEDS: ALBUTEROL SULFATE/IPRATROPIU 3 ML SOL IH SCH ×3 (07:10→19:10)
--- NOTE | 2018-11-14 07:10 | NUR ---
SATURATION 96% ON HUMIDIFIED SUPPLEMENTAL OXYGEN AT 4 LPM VIA OXYMIZER POST HHN THERAPY TITRATED FIO2 TO 3 LPM CHANGED OXYGEN DEVICE TO A NASAL CANNULA MEEK/MARCELO NOTIFIED
--- NOTE | 2018-11-14 07:21 | NUR ---
RECEIVED REPORT FROM CURRICULUM MANAGER RN AT BEDSIDE FOR CONTINUITY OF CARE. PT AAOX4. PT IV NOTED RIJ TRIPLE LUMEN SALINE LOCK & RFA 22G NS AT 80ML/HR. NO SOB NO S/S OF DISTRESS ON NC VIA 3L PER RT WHICH IS AT BEDSIDE. BED LOWERED CALL LIGHT WITHIN REACH. WILL CONTINUE TO MONITOR.
[2018-11-14 07:40] LABS: CARBON DIOXIDE 29.8 mmol/L (21-32); POTASSIUM 3.8 mmol/L (3.5-5.1)
[2018-11-14 07:42] LABS: CREATININE 0.8 mg/dL (0.7-1.3)
--- NOTE | 2018-11-14 07:43 | NUR ---
SATURATION 94% ON HUMIDIFIED OXYGEN AT 3 LPM VIA NC COMMERCIAL INTERN TO MONITOR FOR FURTHER TITRATION MEEK/MARCELO AT BEDSIDE
--- NOTE | 2018-11-14 07:47 | NUR ---
RECEIVED CRITICAL VALUE OF 424 BLOOD SUGAR FOR PT. PER DR ORDERS i REASSESSED BS AND BS IS NOW 277. NO ACTION REQUIRED AT THIS TIME PER DR ORDERS.
[2018-11-14 08:00] VITALS: BP 138/91
--- NOTE | 2018-11-14 08:56 | NUR ---
ADMINISTERED MORNING MEDS TO PT. PT TOLERATED MEDS WELL. ALL NEEDS MET AT THIS TIME. WILL CONTINUE TO MONITOR PT. BED IN LOW POSITION, CALL LIGHT WITHIN REACH.
[2018-11-14] MEDS ORDERED: INSULIN LANTUS 100 UNITS/ML 10 ML VIAL SUBQ SCH (09:00)
[2018-11-14] MEDS ORDERED: methylPREDNISolone SS 40 MG/ML VIAL IVP SCH ×2 (09:00)
[2018-11-14] MEDS ORDERED: ALLOPURINOL 300 MG TAB PO SCH (09:00)
--- NOTE | 2018-11-14 09:23 | NUR ---
RECEIVED ORDER FOR TRANSFER TO CONTRACTED HOSPITAL. I CALLED CHRISTY FROM [facility] AND FAXED HER THE CLINICALS PLUS THE ORDER, PHONE [phone] FAX [phone]
[2018-11-14] MEDS: CARVEDILOL 12.5 MG TAB PO SCH (09:57)
[2018-11-14] MEDS: GABAPENTIN 100 MG CAP PO SCH ×3 (09:58→17:43)
[2018-11-14] MEDS: NICOTINE TRANSD SYS 14 MG/24 HR PATCH TD SCH (10:06)
--- NOTE | 2018-11-14 11:21 | NUR ---
PT EATING CANDY IN BED. I EDUCATED PT ON THE IMPORTANCE OF NOT OVER EATING SUGARY FOODS DUE TO UNCONTROLLED DM. PT VERBALIZED UNDERSTANDING OF TEACHING. WILL CONTINUE TO ROUND FREQUENTLY. BED IN LOW POSITION, CALL LIGHT WITHIN REACH
[2018-11-14 12:00] VITALS: BP 125/85
[2018-11-14] MEDS ORDERED: GLUC-805 FS (12:53)
[2018-11-14] MEDS ORDERED: BENZ100C6 PO (12:53)
[2018-11-14] MEDS ORDERED: ACET-1182 PO (12:53)
[2018-11-14] MEDS ORDERED: CHLO118S2 TP (12:54)
[2018-11-14] MEDS ORDERED: HEPA500056 SUBQ (12:54)
[2018-11-14] MEDS ORDERED: ZOLP5TAB1 PO (12:54)
[2018-11-14] MEDS ORDERED: D50SYR IVP (12:54)
[2018-11-14] MEDS ORDERED: METH40PD15 IVP ×3 (12:54)
[2018-11-14] MEDS ORDERED: HUMSLIDE SUBQ (12:54)
[2018-11-14] MEDS ORDERED: ATI2I IM/IVP (12:54)
[2018-11-14] MEDS ORDERED: LANTUS SUBQ (12:54)
[2018-11-14] MEDS ORDERED: BACTNA NS (12:54)
[2018-11-14] MEDS ORDERED: ROBAC PO (12:54)
[2018-11-14] MEDS ORDERED: ONDA2SOL45 IM/IVP (12:54)
[2018-11-14] MEDS ORDERED: FAMO-90 PO (12:54)
[2018-11-14] MEDS ORDERED: ALBU3SOL83 IH ×2 (12:54)
[2018-11-14] MEDS ORDERED: NICO14TD30 TD (12:54)
[2018-11-14] MEDS ORDERED: PIPE1SOL IV (12:54)
[2018-11-14] MEDS ORDERED: MORP2SOL18 IVP (12:54)
[2018-11-14] MEDS ORDERED: Vancomycin Per Pharmacy MC (12:54)
[2018-11-14] MEDS ORDERED: DOCU-299 PO (12:54)
[2018-11-14] MEDS ORDERED: ACET-9525 PO (12:54)
--- NOTE | 2018-11-14 13:32 | NUR ---
SATURATION 94% ON SUPPLEMENTAL OXYGEN AT 3 LPM VIA NC POST HHN THERAY TITRATED FIO2 TO 2 LPM FILLER PICKER TO MONITOR MEEK/MARCELO NOTIFIED
--- NOTE | 2018-11-14 13:43 | NUR ---
11/14/18 RD FOLLOW-UP COMPLETED PLEASE REFER TO NUTRITION ASSESSMENT UNDER CARE ACTIVITY FOR ESTIMATED NUTRITIONAL NEEDS. 1. CONTINUE 60 GM CCHO DIET AND ENSURE MAX PROTEIN TID TOLERATED 2. RD TO FOLLOW UP ON PO INTAKE AND WEIGHT GAIN 3. RD TO FOLLOW-UP 3-5 DAYS, MODERATE RISK TALITA BYNUM, RD
--- NOTE | 2018-11-14 13:56 | NUR ---
PT RESTING IN BED. NO COUGH PRESENT AT THIS TIME. NO OTHER NEEDS AT THIS TIME. CALL LIGHT WITHIN REACH, BED IN LOW POSITION.
[2018-11-14] MEDS: CHLORHEXADINE GLUC 2% CLOTH TP SCH (14:17)
--- NOTE | 2018-11-14 14:26 | NUR ---
RECEIVED CALL FROM JAYCOB BRAZER CRAWLER TORCH FROM [facility]. JAYCOB ASKED QUESTIONS REGARDING ELIGIBILITY FOR PT TO BE TRANSFERED TO FACILITY. PER JAYCBO, THEY ARE ACCEPTING PT AND NOW JUST AWAITING AVAILABILITY FOR A BED TO BE OPEN. POSSIBLE TRANSFER TONIGHT/TOMORROW MORNING.
--- NOTE | 2018-11-14 14:28 | NUR ---
JAYCOB FROM [facility]: .
--- NOTE | 2018-11-14 14:55 | NUR ---
RECEIVED CALL FROM PATRICIA FROM LAB. PT VANCOMYCIN TROUGH IS 19.6. WILL HOLD VANCO INFUSION UNTIL 2100. Q12H NEW SCHEDULE FROM NEW DOSE TIME.
[2018-11-14] MEDS: MUPIROCIN CA NASAL 2% 1GM TUBE NS SCH (15:13)
--- NOTE | 2018-11-14 15:17 | NUR ---
PER PHARMACY'S ORDERS. VANCOMYCIN WILL BE HELD UNTIL 2100 TONIGHT. Q12H WILL BE NEW FREQUENCY OF MEDICATION.
--- NOTE | 2018-11-14 15:32 | NUR ---
SPOKE WITH CHRISTY FROM [facility], . SHE SAID THAT THEY ARE JUST WAITING FOR A BED. I GAVE HE THE PHONE NUMBER TO TO FLOOR WHEN A BED BECOMES AVILABLE AND THAT THE CHARGE NURSE WAS TREVOR. CHRISTY SAID THE ACCEPTING PHYSICIAN WILL BE DR. HUMZA NICOLE. THE AUTH FOR [facility], [place], [place] [id number]. [address]ESS TO [place] [address] PHONE [phone]
[2018-11-14 16:00] VITALS: BP 126/89
--- NOTE | 2018-11-14 16:16 | NUR ---
RECEIVED CALL FROM JUAN FROM [facility]. PT HAS BEEN ACCEPTED INTO [facility]. PT IS GOING TO ROOM 362. CALL BACK NUMBER IS AND EXTENSION IS [phone]. PER JUAN, [facility] IS ON WILL CALL FOR THIS PATIENT'S TRANSFER.
--- NOTE | 2018-11-14 16:40 | NUR ---
PT POC GLUCOSE AT 155. PT IS REFUSING INSULIN COVERAGE AT THIS TIME.
--- NOTE | 2018-11-14 19:59 | NUR ---
ENDORSED PT TO BATTERY PLATE REMOVER FOR CONTINUITY OF CARE, PT IN STABLE CONDITION.
[2018-11-14 20:00] VITALS: BP 120/77
--- NOTE | 2018-11-14 20:00 | NUR ---
RECEIVED BEDSIDE REPORT FROM MARCELO EDEN, PATIENT IN BED, ON 2 L NC, V/S STABLE. AWAITING TRANSFER TO [facility]. WILL LEAVE TRIPLE LUMEN IJ IN PLACE. ALL DX PAPERWORK SIGNED. Addendum: 11/14/18 at 2240 by La Nena Epstein RN ALL D/C PAPERWORK SIGNED
--- NOTE | 2018-11-14 20:40 | NUR ---
CALLED [facility] TO VERIFY ADDRESS. PATIENT WILL BE TRANSPORTED NOW.
--- NOTE | 2018-11-14 20:58 | NUR ---
RIGHT IJ SL, WRIST BANDS REMOVED, PATIENT LEFT TO [facility] VIA [facility], PATIENT STABLE. NO DUE MEDICATIONS GIVEN.
[2018-11-14] MEDS ORDERED: VANCOMYCIN 1,250 MG in DEXTROSE 5% 250 ML IV SCH (21:00)
[2018-11-15] MEDS ORDERED: methylPREDNISolone SS 40 MG/ML VIAL IVP SCH (09:00)
[2018-11-16] MEDS ORDERED: methylPREDNISolone SS 40 MG/ML VIAL IVP SCH (09:00)
[2018-11-16] MEDS ORDERED: SULF-58 PO (20:25)
[2018-11-16] MEDS ORDERED: SULF-59 PO (20:41)
[2018-11-17] MEDS ORDERED: METHYLPREDNISOLONE SS IVP SCH (09:00)
[2018-11-17] MEDS ORDERED: methylPREDNISolone SS 40 MG/ML VIAL IVP SCH (09:00)
[2018-11-18] MEDS ORDERED: METHYLPREDNISOLONE SS IVP SCH (09:00)
[2018-11-19] MEDS ORDERED: methylPREDNISolone SS 40 MG/ML VIAL IVP SCH (09:00)
== END 2018-11-14 20:58 | disposition short-term general hospital (02) | DRG 720 ==
LOC: MED 15:01 → MTU 19:06
PROVIDERS: ADMIT General Practice; ATTEND General Practice
PROC: 02HV33Z Insertion of Infusion Device into Superior Vena Cava, Percutaneous Approach (ICD-10-PCS; principal; 2018-11-11)
PROC: B548ZZA Ultrasonography of Superior Vena Cava, Guidance (ICD-10-PCS; 2018-11-11)
PROC: 5A09357 Assistance with Respiratory Ventilation, Less than 24 Consecutive Hours, Continuous Positive Airway Pressure (ICD-10-PCS; 2018-11-11)
DX: A41.9 Sepsis, unspecified organism (principal); J96.21 Acute and chronic respiratory failure with hypoxia; J69.0 Pneumonitis due to inhalation of food and vomit; E43 Unspecified severe protein-calorie malnutrition; E11.42 Type 2 diabetes mellitus with diabetic polyneuropathy; D68.59 Other primary thrombophilia; E11.65 Type 2 diabetes mellitus with hyperglycemia; J84.10 Pulmonary fibrosis, unspecified; E87.1 Hypo-osmolality and hyponatremia; J43.9 Emphysema, unspecified; E11.69 Type 2 diabetes mellitus with other specified complication; R65.20 Severe sepsis without septic shock; I10 Essential (primary) hypertension; E86.0 Dehydration; M10.9 Gout, unspecified; R91.8 Other nonspecific abnormal finding of lung field; E87.6 Hypokalemia; R62.7 Adult failure to thrive; Z87.891 Personal history of nicotine dependence; Z68.1 Body mass index [BMI] 19.9 or less, adult; Z79.899 Other long term (current) drug therapy; Z22.322 Carrier or suspected carrier of Methicillin resistant Staphylococcus aureus
CPT/HCPCS: 36415; 36600; 70492; 71045; 71270; 80048; 80053; 80202; 80305; 81003; 82140; 82150; 82272; 82803; 82948; 83036; 83605; 83690; 83735; 83880; 84100; 84436; 84443; 84484; 85025; 85379; 85610; 85730; 87040; 87070; 87081; 87086; 87186; 87205; 87804; 89220; 90658; 90732; 93005; 93925; 93970; 94640; 94660; 96361; 96365; 96375; 99291; G0482; J1642; J1644; J1815; J1885; J2060; J2543; J2920; J2930; J3370; J7030; J7060; J7620; Q0092; Q9967